=== PATIENT | female | born 1995 | race Caucasian/White ===

== ENCOUNTER 2020-09-08 11:20 | Emergency (ER) | payer BC, SELFPAY ==
[2020-09-08 11:23] VITALS: BP 116/78; PULSE 75; RESP 18; TEMP 36.9; O2SAT 100; BMI 19.7
[2020-09-08] MEDS: Ibuprofen 600 MG TABLET PO (12:38)
[2020-09-08] MEDS: Metoclopramide HCl 10 MG TABLET PO (12:38)
[2020-09-08] MEDS: diphenhydrAMINE HCL 25 MG TABLET 50 MG PO (12:38)
--- NOTE | 2020-09-08 12:53 | ED.HA ---
HPI - Headache General Chief Complaint: Headache Stated Complaint: HEADACHE Time Seen by Provider: 09/08/20 12:03 Source: patient Mode of arrival: ambulatory Limitations: no limitations History of Present Illness HPI Narrative: 25-year-old female who presents emergency department for evaluation of blurred vision, headache weakness and anxiety. The patient states that approximately 45 minutes prior to coming to the emergency department her vision became blurred. She states this lasted for about 10 minutes and then resolved. She then developed a headache. She points the frontal area of her head when asked to localize the pain. She describes the pain as a ?pain ?. The pain is 8/10 at its worst. The patient denied nausea or vomiting. She states that she felt anxious secondary to her symptoms. Patient states she has a history of migraine headaches but has not had a migraine in many years. She states that she is due for menstrual period in the next 1-2 days. She denied fever, chills, neck pain, chest pain, abdominal pain. Related Data Previous Rx's Medication Instructions Recorded metoclopramide HCl [Reglan] 10 mg PO Q6H PRN #14 tab 09/08/20 Allergies Allergy/AdvReac Type Severity Reaction Status Date / Time No Known Allergies Allergy Unverified 01/12/20 19:45 [No Known Allergies*] Review of Systems Review of Systems: Yes all other systems are reviewed and are negative [facility] Past Medical History ON LICENSE OF [facility] Narrative: The patient denies tobacco, alcohol and drug use. Medical History Dysmenorrhea Migraines Social History Social History Advance Directives: Yes Advance Directives Information Provided: No Advance Directives on File: No Physical Exam Vital Signs: Vital Signs: Last Vital Signs Temp 98.4 F 09/08/20 11:23 Pulse 75 09/08/20 11:23 Resp 18 09/08/20 11:23 BP 116/78 09/08/20 11:23 Pulse Ox 100 09/08/20 11:23 Body Mass Index 19.7 Const: General: cooperative and healthy appearing Orientation/consciousness: oriented to person and oriented to place Limitations: no limitations HENMT: Head: Yes normal to inspection, Yes normocephalic and Yes atraumatic Ears: external ears normal General nose exam: Normal external nose present Face and sinus: Yes normal facial exam Mouth: Normal oral and palatal mucosa present Throat: Yes posterior oropharynx normal Eyes: Periorbital: periorbital findings normal Eyelids: Yes eyelids normal Conjunctivae: conjunctivae normal Sclerae: sclerae normal Corneas: corneas normal Pupils: Equal, round and reactive pupils present Direct Ophthalmoscopy: normal light reflex Neck: Neck: Yes full ROM, Yes no lymphadenopathy, Yes no meningeal signs, Yes trachea midline and Yes supple Chest: Chest palpation & inspection: normal inspection of the chest and normal palpation of entire chest wall Resp: Effort & Inspection: normal respiratory effort and able to speak in complete sentences Auscultation: clear to auscultation bilaterally Cardio: Rate: regular rate Rhythm: regular rhythm Heart sounds: S1 normal heart sound present, S2 normal heart sound present and no murmurs GI: Inspection: Yes normal to inspection Palpation (GI): Soft to palpation, nontender, no guarding, not rigid and No hepatosplenomegaly present : General: Yes no CVA tenderness Back/Spine/Pelvis: Back: no CVA tenderness Cervical Spine: normal cervical lordosis Thoracic/Lumbar Spine: thoracic and lumbar spine normal to inspection Skin: Lesions: no lesions Rashes: no rashes Wounds: no wounds Neuro: General: oriented to person, oriented to place and no meningeal signs Cranial nerves: Yes CN's II-XII intact bilaterally and Yes Equal, round and reactive pupils present Cognition (Neuro): normal cognition Motor exam (neuro): 5/5 motor strength present throughout Extrem: General: Yes normal to inspection and Yes full ROM Psych: Appearance: well kempt Mental Status: mental status grossly normal Speech and movement: Normal speech and movement present Affect: normal affect Attitude: cooperative Thought process: Normal thought process present Thought content: Normal thought content present Course Course Course Narrative: 25-year-old female who presents emergency department for evaluation of blurred vision, headache, weakness and anxiety. The patient's presentation is consistent with an acute migraine, her vital signs are normal in her examination was unremarkable. The patient was treated with ibuprofen 600 mg orally, Reglan 10 mg orally and Benadryl 50 mg orally. The patient will be discharged home. As an outpatient she was advised to take Excedrin migraine 1 tablet, Reglan 10 mg orally and Benadryl 50 mg orally every 6 hours as needed for headache. She was given verbal and printed instructions on migraines and discharged home. Discharge Plan Discharge Clinical Impression: Migraine Qualifiers: Migraine type: without aura Status migrainosus presence: without status migrainosus Intractability: not intractable Qualified Code(s): G43.009 - Migraine without aura, not intractable, without status migrainosus Patient Disposition: Home, Self-Care Instructions: Acute Headache (ED) Additional Instructions: Your symptoms are consistent with a migraine headache. Take the following 3 medications together every 6 hours as needed for headaches: Reglan (metoclopramide) 10 mg, 1 pill orally Benadryl 25 mg, 2 pills orally Excedrin migraine, 1 pill orally These medications will make you sleepy. After you take these medications, lie down in a dark quiet room and try to sleep, this will help the migraine go away. Follow-up with your doctor in 2 days. Please return to the emergency department if your symptoms get worse or if you develop any symptoms that are concerning to you. Prescriptions: New metoclopramide HCl [Reglan] 10 mg tablet 10 mg PO Q6H PRN (Reason: nausea and vomiting) Qty: 14 RF: 0
[2020-09-08 13:11] VITALS: RESP 18
[2020-09-08 13:13] VITALS: PULSE 70; RESP 17; O2SAT 99
--- NOTE | 2020-09-08 13:14 | PC.NURSE ---
NEUROS INTACT, SPEECH CLEAR, MOVING ALL EXTREMITIES, FACE SYMMETRICAL, PERRLA.
== END 2020-09-08 13:15 | disposition home or self-care (01) ==
PROVIDERS: Emergency Provider Emergency Medicine Emergency Medical Services; PCP Internal Medicine
DX: G43.009 Migraine without aura, not intractable, without status migrainosus (principal)
CPT/HCPCS: 99283; 99284; Q0163